=== PATIENT | female | born 1985 | race Caucasian/White ===

== ENCOUNTER → 2016-09-24 | Outpatient (CLI) | payer OTHER ==
[~2016-09-24] MED LIST: ESOM20CA PO
--- NOTE | 2016-09-24 11:56 | DIAGNOSTIC IMAGING REPORT ---
THYROID ULTRASOUND CLINICAL HISTORY: Left lobe thyroid nodule. COMPARISON STUDY: Thyroid ultrasound January 08, 2016. TECHNIQUE: Sonography of the thyroid gland was performed. FINDINGS: Right lobe measures 4.9 x 1.5 x 1.7 cm and the left lobe measures 5.4 x 1.5 x 2.2 cm. There is a mixed cystic and solid nodule within the upper pole of the left lobe that measures 0.8 x 0.8 x 0.4 cm. This has mildly decreased in size since exam of January 08, 2016. In addition, there is a 0.4 cm cystic nodule within the lower pole the left lobe. This is unchanged. IMPRESSION: Mild interval decrease in size of the 0.8 cm left lobe nodule since exam of January 08, 2016. Electronically signed by: Julio Vizcarra M.D. 09/24/2016 11:55 AM Dictated Date/Time: 09/24/2016 11:52 AM
== END | disposition home or self-care (01) ==
LOC: C.ULTR 11:17
PROVIDERS: ATTEND Internal Medicine Endocrinology, Diabetes & Metabolism
DX: E04.1 Nontoxic single thyroid nodule (principal)

== ENCOUNTER → 2016-10-03 | Outpatient (CLI) | payer OTHER ==
--- NOTE | 2016-10-03 12:44 | MAMMOGRAPHY REPORT ---
UNILATERAL RIGHT DIGITAL DIAGNOSTIC MAMMOGRAM TOMOSYNTHESIS WITH CAD AND TARGETED RIGHT ULTRASOUND: 10/03/2016 CLINICAL HISTORY: The patient reports dull intermittent pain in her right upper outer quadrant since July. She denies any associated palpable lumps. She reports no family history of breast cance r. TECHNIQUE: Breast tomosynthesis in addition to standard 2D mammography was performed. Current study was also evaluated with a Computer Aided Detection (CAD) system. Right CC and MLO 2-D and tomosynt hesis images were obtained. COMPARISON: No prior exams were available for comparison. BREAST COMPOSITION: The tissue of the right breast is heterogeneously dense, which may obscure smal l masses. FINDINGS: There are no suspicious masses, calculations, or areas of architectural distortion noted in the right breast. A few scattered benign-appearing punctate calcifications are noted in the righ t breast. Targeted ultrasound was performed of the area of pain pointed out by the patient, involving the righ t upper outer quadrant. Sonographically normal tissue is seen in this region, without evidence of a mass or other suspicious sonographic abnormalities. IMPRESSION: ACR BI-RADS CATEGORY 2: BENIGN, TARGETED ULTRASOUND ACR BI-RADS CATEGORY 2: BENIGN No suspicious mammographic or sonographic abnormality at the site of right upper outer quadrant jing [address] pain. There is no mammographic or targeted sonographic evidence of malignancy. Recommend clinic al follow-up, and recommend routine bilateral screening mammograms starting at the age of 40 unless otherwise clinically indicated. The patient has been verbally notified of the results. Approximately 10% of breast cancers are not detected with mammography. A negative mammographic repor t should not delay biopsy if a clinically suggestive mass is present. Lisa Villalobos M.D. ah/:10/03/2016 11:05:02 Facing Slitter: Alma BAIG)(M), [facility] letter sent: Normal 1/2 BI-RADS Code: ACR BI-RADS Category 2: Benign Ultrasound BI-RADS: ACR BI-RADS Category 2: Benign
== END | disposition home or self-care (01) ==
LOC: C.MAMM 10:41
PROVIDERS: ATTEND Obstetrics & Gynecology
DX: N63 Unspecified lump in breast (principal)

== ENCOUNTER → 2017-01-09 | Outpatient (CLI) | payer OTHER | END | disposition home or self-care (01) | LOC: C.PAPS 09:53 | PROVIDERS: ATTEND Physician Assistant | DX: Z12.4 Encounter for screening for malignant neoplasm of cervix (principal) ==

== ENCOUNTER → 2017-07-22 | Outpatient (CLI) | payer OTHER ==
[~2017-07-22] MED LIST changes: +OPTIRAY 320 IV PRN
--- NOTE | 2017-07-22 09:38 | DIAGNOSTIC IMAGING REPORT ---
SOFT TISSUE NECK COMBO CLINICAL HISTORY: SCAN A COMBO PER MALACHI(), STONE VS SIALOADENITIS TECHNIQUE: Pre and postcontrast CT scans of the neck COMPARISON STUDY: 08/03/2015 FINDINGS: Unenhanced component of the study shows no evidence for calcification within the salivary gland regions. The parotid and submandibular glands are unremarkable in appearance. Enhanced component of the study is considered negative for mass or collection. Several small cervical nodes are present which are considered unchanged from the prior study. No evidence for a dominant or progressive alexandrea complex. Salivary glands enhance uniformly. There is no significant infiltrative changes of the surrounding fat. Structures of the airway including laryngeal, glottic, and subglottic regions are unremarkable. Thyroid remains heterogeneous throughout and is unchanged from the prior study. Pulmonary apices are considered clear. IMPRESSION: 1. Normal study of the soft tissue neck and salivary gland components. 2. Heterogeneous thyroid unaltered from the prior exam. 3. No evidence for new or interval process. The above report was generated using voice recognition software. It may contain grammatical, syntax or spelling errors. Electronically signed by: Bhargav Silver M.D. 07/22/2017 9:37 AM Dictated Date/Time: 07/22/2017 9:31 AM
== END | disposition home or self-care (01) ==
LOC: C.CTS 09:14
DX: K11.20 Sialoadenitis, unspecified (principal)

== ENCOUNTER → 2017-10-14 | Outpatient (CLI) | payer OTHER ==
[~2017-10-14] MED LIST changes: -OPTIRAY 320 IV PRN
--- NOTE | 2017-10-14 18:37 | DIAGNOSTIC IMAGING REPORT ---
PA CHEST WITH LEFT-SIDED RIB SERIES CLINICAL HISTORY: Left-sided chest wall pain. FINDINGS: A PA chest radiograph with 4 additional views may left-sided rib series is compared to study dated 12/25/2014. The cardiomediastinal silhouette is unremarkable. The lungs and pleural spaces are clear. No pneumothorax is seen. There is no radiographic evidence of left-sided rib fracture on the rib series. The remainder of the bony thorax is grossly intact. IMPRESSION: 1. The lungs are clear. 2. There is no radiographic evidence of left-sided rib fracture as clinically queried. Electronically signed by: Don Ocasio M.D. 10/14/2017 6:35 PM Dictated Date/Time: 10/14/2017 6:34 PM
== END | disposition home or self-care (01) ==
LOC: C.RAD 17:15
PROVIDERS: ATTEND Internal Medicine
DX: R07.81 Pleurodynia (principal)

== ENCOUNTER → 2017-10-15 | Outpatient (CLI) | payer OTHER | END | disposition home or self-care (01) | LOC: C.LABPBG 09:19 | PROVIDERS: ATTEND Internal Medicine | DX: E55.9 Vitamin D deficiency, unspecified (principal); E04.1 Nontoxic single thyroid nodule; Z13.220 Encounter for screening for lipoid disorders; Z13.1 Encounter for screening for diabetes mellitus ==